=== PATIENT | female | born 1985 ===

== ENCOUNTER 2017-10-04 13:00 | Inpatient (IN) | payer OTHER ==
[~2017-10-04] VITALS: Ht 157.5 cm; Wt 69.9 kg
[2017-10-22] MEDS ORDERED: PRENATAL 19 TA1 EACH (14:27)
== END 2017-10-23 13:06 | disposition home or self-care (01) | DRG 767 ==
LOC: OB/GYN 10-21 06:15 → LDR 10-21 06:15 → OB/GYN 10-21 11:09
PROVIDERS: Obstetrics & Gynecology
PROC: 0UT70ZZ Resection of Bilateral Fallopian Tubes, Open Approach (ICD-10-PCS; 2017-10-21)
PROC: 4A1HXCZ Monitoring of Products of Conception, Cardiac Rate, External Approach (ICD-10-PCS; 2017-10-21)
PROC: 0W8NXZZ Division of Female Perineum, External Approach (ICD-10-PCS; 2017-10-21)
PROC: 10E0XZZ Delivery of Products of Conception, External Approach (ICD-10-PCS; principal; 2017-10-21 17:45)
DX: O48.0 Post-term pregnancy (principal); Z30.2 Encounter for sterilization; Z64.1 Problems related to multiparity; Z37.0 Single live birth